=== PATIENT | male | born 1955 | race Caucasian/White ===

== ENCOUNTER 2017-02-23 03:19 | Emergency (ER) | payer BC ==
[~2017-02-23] VITALS: Ht 188 cm; Wt 118.9 kg
[~2017-02-23 03:19] MED LIST: ACET-1256 PO; ALBUAER2 INH; ASPEC81 PO; MULT-506 PO
[2017-02-23 03:24] VITALS: TEMP 36.8; Ht 188 cm; Wt 118.9 kg
[2017-02-23] MEDS ORDERED: ALBUT/IPRATROP 3MG/0.5MG NEB 3 ML VIAL INH STA (03:32)
[2017-02-23] MEDS ORDERED: KETOROLAC TROMETHAMINE 30 MG/ML VIAL IV STA (03:32)
[2017-02-23] MEDS ORDERED: SODIUM CHLORIDE 0.9% 1000ML 1,000 ML IV STA (03:32)
[2017-02-23] MEDS ORDERED: ALBUTEROL HFA 8 GM INHALER INH STA (03:32)
[2017-02-23] MEDS ORDERED: DEXAMETHASONE **PF** INJ 10 MG/ML VIAL IV ONE (03:45)
[2017-02-23 04:04] LABS: BASO % 0.1 %; BASO ABS # 0.01 K/uL (0-0.2); COMPLETE YES; EOS % 0.6 %; HEMATOCRIT 44.9 % (42-52); IG% 0.3 %; LYMPH ABS # 1.03 K/uL (1.2-3.4); MEAN CELL VOLUME 93.7 fL (80-100); MEAN CORPUSCULAR HEMOGLOBIN 34.2 pg (25-34); MEAN CORPUSCULAR HGB CONC 36.5 g/dl (32-36); MEAN PLATELET VOLUME 10.6 fL (7.4-10.4); MONO % 11.8 %; NEUT % 76.2 %; PLATELET COUNT 187 K/uL (130-400); RED BLOOD COUNT 4.79 M/uL (4.7-6.1); WHITE BLOOD COUNT 9.35 K/uL (4.8-10.8)
[2017-02-23] MEDS ORDERED: SYMIN160 INH (04:16)
[2017-02-23] MEDS ORDERED: ALBUAER INH (04:21)
[2017-02-23 04:23] LABS: INR 0.9 (0.9-1.1); PROTHROMBIN TIME (PATIENT) 9.7 SECONDS (9.0-12.0)
[2017-02-23] MEDS ORDERED: METO50TA18 PO (04:24)
[2017-02-23 04:28] LABS: BUN/CREATININE RATIO 16.7 (10-20); CALCIUM 8.6 mg/dl (8.5-10.1); CREATININE 1.17 mg/dl (0.60-1.40); POTASSIUM 3.2 mmol/L (3.5-5.1)
[2017-02-23 04:31] VITALS: BP 136/93
[2017-02-23] MEDS ORDERED: POTASSIUM CHLORIDE 10 MEQ TABCR PO STA (04:32)
[2017-02-23 04:33] LABS: INFLUENZA A PCR Neg for Influ A (NEG); INFLUENZA B PCR Neg for Influ B (NEG)
[2017-02-23 04:33] LABS: ALB/GLOB RATIO 1.2 (0.9-2)
[2017-02-23] MEDS ORDERED: AZITHROMYCIN 250 MG TAB PO STA (04:43)
--- NOTE | 2017-02-23 04:46 | EMERGENCY ROOM VISIT NOTE ---
History First contact with patient: 03:28 Chief Complaint: ILLNESS Stated Complaint: CHILLS,CHEST/BREATHING,SORE THROAT History of Present Illness The patient is a 61 year old male who presents to the Emergency Room with complaints of fever, chills, cough, congestion, bodyaches, myalgias and arthralgias for the past day. No temperature was taken. Patient has taken Tylenol and Motrin today. Patient states he feels miserable. He did receive the flu vaccine. He does not smoke. No sick contacts. Patient denies chest pain, abdominal pain, vomiting, diarrhea, neck stiffness. He is tolerating by mouth fluids but has a lack of appetite. Review of Systems See HPI for pertinent positives & negatives. A total of 10 systems reviewed and were otherwise negative. Past Medical/Surgical History Hypertension, asthma, melanoma Social History Smoking Status: Never Smoker Smokeless Tobacco Use: No Alcohol Use: occasionally Drug Use: none Marital Status: Housing Status: lives with family Occupation Status: employed Current/Historical Medications Scheduled Acetaminophen (Tylenol), 1,000 MG PO UD Metoprolol & Hydrochlorothiazi (Metoprolol/Hydrochlorothi), 1 TAB PO DAILY Multivitamin (Multivitamin), 1 TAB PO DAILY Scheduled PRN Albuterol Sulfate (Proventil Hfa), 2 PUFFS INH Q4 PRN for SOB/Wheezing Budesonide/Formoterol Fumarate (Symbicort 160/4.5 Inhaler ), 2 PUFFS INH BID PRN for Shortness of Breath Physical Exam Vital Signs Date Time Temp Pulse Resp B/P (MAP) Pulse Ox O2 Delivery O2 Flow Rate FiO2 02/23/17 04:06 60 02/23/17 03:24 36.8 75 20 144/85 97 Room Air Physical Exam VITALS: Vitals are noted on the nurse's note and reviewed by myself. Vital signs stable. GENERAL: Pleasant male coughing, in no acute distress, nondiaphoretic, well- developed well-nourished. SKIN: The skin was without rashes, erythema, edema, or bruising. There is no tenting of the skin. Capillary reflex less than 2 seconds. HEAD: Normocephalic atraumatic. EARS: External auditory canals clear, tympanic membranes pearly james without erythema or effusion bilaterally. EYES: Pupils equal round and reactive to light and accommodation. Conjunctivae without injection, sclerae without icterus. Extraocular movements intact. NOSE: Patent, turbinates without inflammation or discharge. No sinus tenderness. MOUTH: Mucous membranes mildly dry. Pharynx without erythema or exudate. Uvula midline. Airway patent. Tongue does not deviate. NECK: Supple without nuchal rigidity. No lymphadenopathy. No thyromegaly. Cervical spine is nontender. No JVD. HEART: Regular rate and rhythm without murmurs gallops or rubs. LUNGS: Mild diffuse end expiratory wheezes, without rales or rhonchi. No dullness to percussion. No retractions or accessory muscle use. ABDOMEN: Positive bowel sounds x 4. Normal tympanic percussion. Soft, nontender, without masses or organomegaly. Leonard sign negative. No guarding or rebound tenderness. MUSCULOSKELETAL: No muscle atrophy, erythema, or edema noted. NEURO: Patient was alert and oriented to person place and time. Normal sensation to light and sharp touch. No focal neurological deficits. Medical Decision & Procedures Laboratory Results 02/23/17 03:45 Red Blood Count 4.79, Mean Corpuscular Volume 93.7, Mean Corpuscular Hemoglobin 34.2, Mean Corpuscular Hemoglobin Concent 36.5, Mean Platelet Volume 10.6, Neutrophils (%) (Auto) 76.2, Lymphocytes (%) (Auto) 11.0, Monocytes (%) (Auto) 11.8, Eosinophils (%) (Auto) 0.6, Basophils (%) (Auto) 0.1, Neutrophils # (Auto ) 7.12, Lymphocytes # (Auto) 1.03, Monocytes # (Auto) 1.10, Eosinophils # (Auto ) 0.06, Basophils # (Auto) 0.01 02/23/17 03:45 Test 02/23/17 03:40 02/23/17 03:45 02/23/17 03:52 02/23/17 03:56 Influenza Type A (RT-PCR) Neg for Influ A (NEG) Influenza Type A Antigen Neg for Influ A (NEG) Influenza Type B Antigen Neg for Influ B (NEG) Influenza Type B (RT-PCR) Neg for Influ B (NEG) White Blood Count 9.35 K/uL (4.8-10.8) Red Blood Count 4.79 M/uL (4.7-6.1) Hemoglobin 16.4 g/dL (14.0-18.0) Hematocrit 44.9 % (42-52) Mean Corpuscular Volume 93.7 fL (80-100) Mean Corpuscular Hemoglobin 34.2 pg (25-34) Mean Corpuscular Hemoglobin Concent 36.5 g/dl (32-36) Platelet Count 187 K/uL (130-400) Mean Platelet Volume 10.6 fL (7.4-10.4) Neutrophils (%) (Auto) 76.2 % Lymphocytes (%) (Auto) 11.0 % Monocytes (%) (Auto) 11.8 % Eosinophils (%) (Auto) 0.6 % Basophils (%) (Auto) 0.1 % Neutrophils # (Auto) 7.12 K/uL (1.4-6.5) Lymphocytes # (Auto) 1.03 K/uL (1.2-3.4) Monocytes # (Auto) 1.10 K/uL (0.11-0.59) Eosinophils # (Auto) 0.06 K/uL (0-0.5) Basophils # (Auto) 0.01 K/uL (0-0.2) RDW Standard Deviation 45.7 fL (36.4-46.3) RDW Coefficient of Variation 13.3 % (11.5-14.5) Immature Granulocyte % (Auto) 0.3 % Immature Granulocyte # (Auto) 0.03 K/uL (0.00-0.02) Prothrombin Time 9.7 SECONDS (9.0-12.0) Prothromb Time International Ratio 0.9 (0.9-1.1) Activated Partial Thromboplast Time 26.8 SECONDS (21.0-31.0) Partial Thromboplastin Ratio 1.0 Anion Gap 7.0 mmol/L (3-11) Est Creatinine Clear Calc Drug Dose 88.6 ml/min Estimated GFR () 76.4 Estimated GFR (Non- 66.0 BUN/Creatinine Ratio 16.7 (10-20) Calcium Level 8.6 mg/dl (8.5-10.1) Total Bilirubin 0.6 mg/dl (0.2-1) Aspartate Amino Transf (AST/SGOT) 27 U/L (15-37) Alanine Aminotransferase (ALT/SGPT) 48 U/L (12-78) Alkaline Phosphatase 82 U/L (45-117) Troponin I 0.021 ng/ml (0-0.045) Total Protein 7.1 gm/dl (6.4-8.2) Albumin 3.9 gm/dl (3.4-5.0) Globulin 3.2 gm/dl (2.5-4.0) Albumin/Globulin Ratio 1.2 (0.9-2) Bedside Lactic Acid Venous 1.35 mmol/L (0.90-1.70) Bedside Troponin I 0.030 ng/ml (0-0.045) Medications Administered Medications (Trade) Dose Ordered Sig/Sarahi Route Start Time Stop Time Status Last Admin Dose Admin Albuterol (Ventolin Hfa Inhaler) 2 puffs ONE STAT INH 02/23/17 03:32 02/23/17 03:34 DC 02/23/17 04:01 60 PUFFS Albuterol/ Ipratropium (Duoneb) 3 ml NOW STAT INH 02/23/17 03:32 02/23/17 03:34 DC 02/23/17 04:10 3 ML Sodium Chloride 1,000 ml @ 999 mls/hr Q1H1M STAT IV 02/23/17 03:32 02/23/17 04:32 DC 02/23/17 04:05 999 MLS/HR Ketorolac Tromethamine (Toradol Inj) 30 mg NOW STAT IV 02/23/17 03:32 02/23/17 03:34 DC 02/23/17 04:08 30 MG Dexamethasone Sodium Phosphate (Dexamethasone Inj Pf) 10 mg NOW ONCE IV 02/23/17 03:45 02/23/17 03:46 DC 02/23/17 04:06 10 MG ED Course Prior records/ancillary studies reviewed. Triage Nursing notes reviewed. The patient's history was concerning for fever. Differential diagnosis: Etiologies such as viral syndrome, otitis, pharyngitis, pneumonia, influenza, meningitis, urinary tract infection, sepsis, bacteremia, as well as others were entertained. Physical examination: Patient is alert and coughing with wheeze ER treatment provided: Nebulizer, Decadron, Toradol, IV fluids On reassessment the patient felt better. Diagnostics interpreted by me: ECG: Normal sinus, left axis deviation, T wave inversion lead 3, first degree AV block, impression normal sinus rhythm with a first-degree AV block with a left axis deviation interpreted by myself The labs revealed negative influenza. Negative lactic acid. No leukocytosis Imaging studies: Chest x-ray with no acute consolidation, pneumothorax or free air per my interpretation This appears to be consistent with asthmatic bronchitis. Patient was neurovascularly and neurologically intact. No signs of meningitis. He was not hypoxic. He felt better after being medicated as above. He was advised take medications as directed, rest, stay well-hydrated and to follow-up family care in a few days or here in the ER sooner for high fevers, lethargy, vomiting, worsening signs or symptoms or as needed. By the evaluation outlined above emergent etiologies such as otitis, pharyngitis, pneumonia, meningitis, urinary tract infection, sepsis, bacteremia, as well as others were deemed relatively unlikely. The pt informed about the findings as listed above. All questions were answered and pleased with the treatment. Return instructions were outlined and the patient was discharged in stable condition. Outpatient prescription management: Prednisone, Zithromax Referral: The patient was referred back to their primary care physician for follow-up in 2 to 3 days for a recheck of the current condition. Case reviewed with my attending. The chart was completed utilizing [employer] Speech voice recognition software. Grammatical errors, random word insertions, pronoun errors, and incomplete sentences are an occassional consequence of this system due to software limitations, ambient noise, and hardware issues. Any formal questions or concerns about the content, text, or information contained within the body of this dictation should be directly addressed to the physician insurance underwriting assistant for clarification. Medical Decision As above Medication Reconcilliation Current Medication List: was personally reviewed by me Blood Pressure Screening Patient's blood pressure: Normal blood pressure Impression Primary Impression: Asthmatic bronchitis Additional Impression: Hypokalemia Departure Information Dispostion Home / Self-Care Condition GOOD Referrals Blanco Du III, M.D. (PCP) Patient Instructions [facility] Additional Instructions Albuterol Inhaler: Take 2 puffs four times daily for five days, then as needed. Prednisone 50mg: Once daily until the prescription is finished. It is best to take this earlier in the day as some patients note occasional difficulty falling asleep when taken in the late evening. Azithromycin(Zithromax) 250mg: Take one a day for 4 additional days. All antibiotics can cause diarrhea. If this occurs and you feel worse or it does not resolve in 1-2 days follow up with your doctor or return to the Emergency Department as this could be signs of serious underlying problems. Any medication can cause an allergic reaction, stop the pills immediately and return to the ER for rash, hives, breathing difficulties, or swelling. Acetaminophen(Tylenol) may be used for fever or pain. Use 1000mg every six hours as needed. Avoid using more than 3000mg in a 24 hour period. (AND/OR) Ibuprofen(Motrin, Advil) may be used for fever or pain. Use 600mg every six hours as needed. Take with food. Avoid using more than 2400mg in a 24 hour period. Do not use 2400mg per day for more than three consecutive days without physician direction. Prolonged inappropriate use can lead to stomach upset or ulcers. Afrin nasal spray: 2-3 sprays to each nostril twice daily as needed for congestion. Do not use for more than 3-4 days because it can lead to worsening rebound congestion. Pseudoephedrine(Sudaphed): 30-60mg every 6 hours as needed for nasal congestion. Do not take this with other stimulant products or supplements. Rest and drink plenty of fluids. Controlling your fever with Tylenol and Ibuprofen as above will make you feel better. Wash your hands after nose blowing, sneezing, or coughing. Most germs are spread through contact, therefore improper hygiene may result in your close contacts and loved ones becoming ill just like you. Continue current medications. Return to the ER for severe headache, neck stiffness, chest pain, difficulty breathing, fevers, vomiting, worsening of your condition, or as needed. Follow up with your primary physician this week for a recheck of your current condition. Problem Qualifiers Primary Impression: Asthmatic bronchitis Asthma severity: unspecified severity Asthma persistence: unspecified Asthma complication type: with acute exacerbation Qualified Codes: J45.901 - Unspecified asthma with (acute) exacerbation
[2017-02-23] MEDS ORDERED: AZIT250T PO (04:47)
[2017-02-23] MEDS ORDERED: PRED50TA PO (04:47)
[2017-02-23 04:49] VITALS: PULSE 93; O2SAT 91
--- NOTE | 2017-02-23 06:04 | DIAGNOSTIC IMAGING REPORT ---
CHEST 2 VIEWS ROUTINE CLINICAL HISTORY: 61 years-old Male presenting with cough/fever. TECHNIQUE: PA and lateral views of the chest were obtained. COMPARISON: 01/18/2011. FINDINGS: Atherosclerosis of the aortic arch. Cardiac silhouette normal in size. Mildly low lung volumes, unchanged. Subtle reticular opacities greater on the left at the lung bases. No large pleural effusion or pneumothorax. Osseous structures normal. Upper abdomen normal. IMPRESSION: 1. No new focal infiltrate to suggest pneumonia. No commencing evidence of acute cardiopulmonary disease. 2. Chronic bibasilar reticular opacities greater on the left with mildly low lung volumes. This could suggest atelectasis or underlying chronic lung disease. Electronically signed by: Xavier Moreno M.D. 02/23/2017 6:02 AM Dictated Date/Time: 02/23/2017 6:00 AM
== END 2017-02-23 04:58 | disposition home or self-care (01) ==
LOC: C.EDB 03:20
DX: J45.909 Unspecified asthma, uncomplicated (principal); E87.6 Hypokalemia; I10 Essential (primary) hypertension; Z85.820 Personal history of malignant melanoma of skin